=== PATIENT | male | born 1965 | race Two or more races ===

== ENCOUNTER 2018-02-23 13:55 | Outpatient (CLI) | payer OTHER | END 2018-02-23 17:14 | disposition home or self-care (01) | LOC: NUCLEAR 13:55 | DX: I20.1 Angina pectoris with documented spasm (principal) ==

== ENCOUNTER 2018-09-08 11:23 | Outpatient (CLI) | payer OTHER | END 2018-09-08 11:26 | disposition home or self-care (01) | LOC: RAD 501 11:23 | DX: Z02.79 Encounter for issue of other medical certificate (principal) ==

== ENCOUNTER 2024-01-20 10:11 | Outpatient (CLI) | payer OTHER | END 2024-01-20 10:52 | disposition home or self-care (01) | LOC: RAD 10:11 | PROVIDERS: ATTEND Radiology Diagnostic Radiology | DX: I10 Essential (primary) hypertension (principal); M25.571 Pain in right ankle and joints of right foot ==

== ENCOUNTER 2025-01-11 10:53 | Outpatient (CLI) | payer OTHER | END 2025-01-11 11:06 | disposition home or self-care (01) | LOC: TOM 10:53 | PROVIDERS: ATTEND Otolaryngology Otolaryngology/Facial Plastic Surgery | DX: E04.2 Nontoxic multinodular goiter (principal); R22.1 Localized swelling, mass and lump, neck; R91.8 Other nonspecific abnormal finding of lung field ==